=== PATIENT | female | born 1965 | race American Indian/Alaskan Native ===

== ENCOUNTER 2016-11-10 10:21 | Outpatient (CLI) | payer OTHER ==
--- NOTE | 2016-11-10 14:18 | Nuclear Medicine Report ---
BONE SCAN: History: Degenerative disc on her own. After injection of isotope, gamma camera imaging of the bony system was done. There is a normal uptake of isotope throughout the bony structures without areas of significantly increased or decreased uptake. Normal uptake in the urinary system is seen. IMPRESSION: Normal bone scan. No significant degenerative uptake is appreciated.
== END 2016-11-10 10:22 | disposition home or self-care (01) ==
LOC: NM 10:21
PROVIDERS: ATTEND Family Medicine
DX: Z00.00 Encounter for general adult medical examination without abnormal findings (principal); M89.8X9 Other specified disorders of bone, unspecified site
CPT/HCPCS: 78306; A9503